=== PATIENT | female | born 1995 | race Caucasian/White ===

== ENCOUNTER 2016-09-16 07:57 | Inpatient (IN) | payer OTHER ==
[2016-09-16] VITALS (16 sets, daily range): BP systolic 103–136; BP diastolic 51–77
[~2016-09-16] VITALS: Ht 170.2 cm; Wt 94.3 kg
[~2016-09-16 07:57] MED LIST: KEFLEX500 MG PO; PRENATAL GUMMI1 EACH PO; ZOFRAN ODT4 MG PO; ZOFRAN4 MG PO
[2016-09-16 09:46] LABS: EOSINOPHIL (%) 0.2 % (0-5); HEMATOCRIT 34.4 % (36.0-46.0); IMMATURE GRANULOCYTE (%) 0.5 % (0.0-0.7); IMMATURE GRANULOCYTE COUNT 0.1 K/uL; INSTRUMENT ABS NEUTROPHIL CT 9.6 K/uL; MCH 30.5 PG (29.0-34.0); MCHC 34.6 G/DL (30.0-36.0); MCV 88.2 FL (83-99); MEAN PLAT.VOLUME 11.1 uM^3 (9.5-12.4); MONOCYTE (%) 5.2 % (3-12); MONOCYTE COUNT 0.6 K/uL (0-0.8); NEUTROPHIL (%) 77.9 % (45-76); NEUTROPHIL COUNT 9.6 K/uL (1.8-6.4); PLATELET COUNT 264 K/uL (156-360); RBC DIS.WIDTH-CV 13.2 % (11.8-14.6); RBC DIS.WIDTH-SD 42.6 % (39-53); WHITE BLOOD COUNT 12.4 K/uL (4.1-10.2)
[2016-09-17 07:50] LABS: EOSINOPHIL (%) 0.1 % (0-5); IMMATURE GRANULOCYTE (%) 0.4 % (0.0-0.7); IMMATURE GRANULOCYTE COUNT 0.1 K/uL; INSTRUMENT ABS NEUTROPHIL CT 13.3 K/uL; LYMPHOCYTE COUNT 2.3 K/uL (1.0-2.8); MCH 30.1 PG (29.0-34.0); MCHC 33.8 G/DL (30.0-36.0); MCV 89.1 FL (83-99); MEAN PLAT.VOLUME 11.3 uM^3 (9.5-12.4); MONOCYTE COUNT 0.8 K/uL (0-0.8); NEUTROPHIL (%) 80.3 % (45-76); NEUTROPHIL COUNT 13.3 K/uL (1.8-6.4); PLATELET COUNT 273 K/uL (156-360); RBC DIS.WIDTH-CV 13.3 % (11.8-14.6); RBC DIS.WIDTH-SD 43.4 % (39-53); RED BLOOD COUNT 3.59 M/uL (3.80-5.20); WHITE BLOOD COUNT 16.5 K/uL (4.1-10.2)
[2016-09-17 15:00] VITALS: BP 125/65
[2016-09-17 23:00] VITALS: BP 120/70
[2016-09-18] MEDS ORDERED: IBUPROFEN800 MG PO (09:34)
== END 2016-09-18 14:55 | disposition home or self-care (01) | DRG 775 ==
LOC: LDRP-OP 07:57 → 2WEST 07:58 → LDRP-OP 20:45 → 2WEST 09-17 08:18 → LDRP-OP 10-11 15:51
PROVIDERS: Advanced Practice Midwife
DX: O48.0 Post-term pregnancy (principal); O99.354 Diseases of the nervous system complicating childbirth; O70.0 First degree perineal laceration during delivery; E66.3 Overweight; G43.709 Chronic migraine without aura, not intractable, without status migrainosus; Z68.32 Body mass index [BMI] 32.0-32.9, adult; Z3A.40 40 weeks gestation of pregnancy; Z37.0 Single live birth
CPT/HCPCS: 85025; J0595; J3105; J7120; Q0169